=== PATIENT | male | born 1995 | race Caucasian/White ===

== ENCOUNTER 2016-06-27 17:06 | Observation (INO) | payer BC, OTHER ==
[2016-06-27] MEDS ORDERED: NS 0.9% 1000 ML* 2,000 ML IV ONE (17:08)
[2016-06-27] MEDS ORDERED: Naloxone* 0.4 MG/ML 1 ML VIAL IV ONE (17:08)
[2016-06-27 17:28] LABS: Add Diff/Slide Review? Slide Review Added; Comments Flag Yes; Hematocrit 46 % (42-52); Hemoglobin 14.9 g/dl (14.0-18.0); Mean Corpuscular HGB Conc 32 g/dl (31-36); Mean Corpuscular Hemoglobin 27 pg (27-31); Mean Corpuscular Volume 82 fL (80-94); Mean Platelet Volume 9 um3 (7.4-10.4); Red Blood Count 5.64 10^6/ul (4.0-5.4); Red Cell Distribution Width 14 % (10.5-15); White Blood Count 23.5 10^3/ul (3.5-10.8)
--- NOTE | 2016-06-27 17:35 | RAD ---
HISTORY: Shortness of breath, overdose COMPARISONS: None VIEWS:1: Single frontal portable view of the chest at 5:17 PM FINDINGS: LINES AND TUBES: None. CARDIOMEDIASTINAL SILHOUETTE: The cardiomediastinal silhouette is normal for portable technique. PLEURA: The costophrenic angles are sharp. No pleural abnormalities are noted. LUNG PARENCHYMA: The lungs are clear. ABDOMEN: The upper abdomen is clear. There is no subphrenic gas. BONES AND SOFT TISSUES: No bone or soft tissue abnormalities are noted. IMPRESSION: NO ACTIVE CARDIOPULMONARY DISEASE.
[2016-06-27 17:44] LABS: ALT 16 U/L (7-52); Albumin 4.6 g/dL (3.2-5.2); Alkaline Phosphatase 90 U/L (34-104); BUN/Creatinine Ratio 14.9 (8-20); Blood Urea Nitrogen 21 mg/dL (6-24); CO2 Carbon Dioxide 19 mmol/L (22-32); Calcium 9.7 mg/dL (8.6-10.3); Chloride 100 mmol/L (101-111); Creatine Kinase 232 U/L (10-223); EGFR African American 80.8 (>60); EGFR Non-African American 62.9 (>60); Globulin 3.2 g/dL (2-4); Glucose 268 mg/dL (70-100); Sodium 135 mmol/L (133-145); Total Protein 7.8 g/dL (6.4-8.9)
[2016-06-27 17:57] LABS: Acetaminophen < 15 mcg/mL; Alcohol < 10 mg/dL (<10); Salicylate < 2.50 mg/dL (<30)
[2016-06-27 18:08] LABS: TSH (Thyroid Stimulating Horm) 5.59 mcIU/mL (0.34-5.60)
[2016-06-27 18:19] LABS: AST 27 U/L (13-39); Anion Gap 16 mmol/L (2-11); Potassium 4.2 mmol/L (3.5-5.0)
[2016-06-27] MEDS ORDERED: Ondansetron INJ* 2 MG/ML VIAL IV PRN (20:02)
[2016-06-27] MEDS ORDERED: Acetaminophen TAB* 325 MG PO PRN (20:02)
--- NOTE | 2016-06-27 20:31 | ED ---
Jassi Curry Auryana, scribed for Rikki Chang MD on 06/27/16 at 1850 . Substance Abuse/Use - HPI Summary HPI Summary: 20 year old male BIBA s/p heroin overdose. Patient states that he was in the [employer] parking lot and had injected into his left wrist. Patient was given 2 mg Narcan by nurse present at [facility] at the time. When EMS arrived he was cyanotic and they performed CPR which brought the patient back. Per EMS- patient was in sinus tachycardia [employer]. On arrival to the ED, the patient complains of chest pain but denies any other complaints. He denies trouble breathing, SI, and any alcohol use today.He reports that he recently was discharged from rehab about 1 month ago and has been clean for 60 days until today. PMHx is significant for heroin overdose. Social history is significant for heroin (7 years). - History Of Current Complaint Chief Complaint: EDOverdose Stated Complaint: OVERDOSE Time Seen by Provider: 06/27/16 17:08 Hx Obtained From: Patient Onset/Duration of Drug/ETOH Abuse: Minutes Ingestion History: Type/Name Of Drug - heroin, Amount Ingested - unknown Overdose Characteristics: IV - at left wrist Timing Of Abuse: Intermittent, Recent Cessation For A Period Of - for about 60 days Severity Initially: Severe Severity Currently: Mild Alleviating Factor(s): Medication - Narcan Related Hx: Drug/Alcohol Last Used @ - [employer] - Risk Factor(s) Completed Suicide Risk Factors: Male, White Brazilian, Unemployed - Allergies/Home Medications Allergies/Adverse Reactions: Allergies Allergy/AdvReac Type Severity Reaction Status Date / Time Peanut-containing Drug Allergy Severe Anaphylatic Verified 02/21/16 22:29 Products Shock Shellfish Allergy Allergy Severe Anaphylatic Verified 02/21/16 22:29 Shock ENVIRONMENT/SEASONAL HAYFEVER Allergy Mild SNEEZE Uncoded 02/21/16 22:29 Home Medications: Home Medications traZODone TAB* [Desyrel TAB*] 50 mg PO BEDTIME PRN 06/27/16 [History Confirmed 06/27/16] PMH/Surg Hx/FS Hx/Imm Hx Endocrine/Hematology History: Reports: Hx Diabetes - Type I Denies: Hx Thyroid Disease Cardiovascular History: Denies: Hx Hypertension Respiratory History: Reports: Hx Asthma - SPORTS INDUCED Denies: Hx Chronic Obstructive Pulmonary Disease (COPD) GI History: Reports: Other GI Disorders - celiac Denies: Hx Ulcer Sensory History: Denies: Hx Contacts or Glasses, Hx Hearing Aid Opthamlomology History: Denies: Hx Contacts or Glasses Psychiatric History: Reports: Hx Substance Abuse - history of overdose - heroin use - 7 years Denies: Hx Eating Disorder, Hx of Violent Episodes Against Others Infectious Disease History: No Infectious Disease History: Denies: Hx Hepatitis, Hx Human Immunodeficiency Virus (HIV), Traveled Outside the [place] in Last 30 Days - Family History Known Family History: Positive: Diabetes - Social History Occupation: Unemployed Alcohol Use: None Hx Substance Use: Yes Substance Use Type: Reports: Heroin Hx Tobacco Use: No Smoking Status (MU): Never Smoked Tobacco Review of Systems Constitutional: Negative Eyes: Negative ENT: Negative Positive: Chest Pain Respiratory: Negative Gastrointestinal: Negative Genitourinary: Negative Musculoskeletal: Negative Skin: Negative Neurological: Negative Psychological: Normal All Other Systems Reviewed And Are Negative: Yes Physical Exam - Summary Physical Exam Summary: The patient is well-nourished in no acute distress and in no acute pain. The skin is warm and diaphoretic and skin color reflects adequate perfusion. HEENT: The head is normocephalic and atraumatic. The pupils are pin point 10 mm in size. The conjunctivae are clear and without drainage. Nares are patent and with drainage. Mouth reveals moist mucous membranes and the throat is without erythema and exudate. The external ears are intact. The ear canals are patent and without drainage. The tympanic membranes are intact. Neck is supple with full range of motion and non-tender. There are no carotid bruits. There is no neck vein distension. Respiratory: Chest is non-tender. Lungs are clear to auscultation and breath sounds are symmetrical and equal. Cardiovascular: Heart is tachycardic. There is no murmur or rub auscultated. There is no peripheral edema and pulses are symmetrical and equal. Reproducible chest pain on the right chest wall. Abdomen: The abdomen is soft and non-tender. There are normal bowel sounds heard in all four quadrants and there is no organomegaly palpated. Musculoskeletal: There is no back pain noted. Extremities are non-tender with full range of motion. There is good capillary refill. There is no peripheral edema or calf tenderness elicited. Neurological: Patient is alert and oriented to person, place and time. The patient has symmetrical motor strength in all four extremities. Cranial nerves are grossly intact. Deep tendon reflexes are symmetrical and equal in all four extremities. Patient is alert and oriented. Psychiatric: The patient has an appropriate affect and does not exhibit any anxiety or depression. Triage Information Reviewed: Yes Vital Signs On Initial Exam: Initial Vitals Temp Pulse Resp BP Pulse Ox 99.2 F 156 12 156/89 92 06/27/16 17:06 06/27/16 17:06 06/27/16 17:06 06/27/16 17:06 06/27/16 17:06 Vital Signs Reviewed: Yes - Lizzette Coma Scale Coma Scale Total: 15 Diagnostics - Vital Signs Vital Signs Temp Pulse Resp BP Pulse Ox 06/27/16 17:30 117 15 152/91 98 06/27/16 17:29 122 23 144/94 98 06/27/16 17:24 99.2 F 117 16 144/94 98 06/27/16 17:13 125 19 98 06/27/16 17:06 99.2 F 156 12 156/89 92 - Laboratory Lab Results: Lab Results 06/27/16 06/27/16 06/27/16 Range/Units 17:14 17:14 17:14 WBC 23.5 H (3.5-10.8) 10^3/ul RBC 5.64 H (4.0-5.4) 10^6/ul Hgb 14.9 (14.0-18.0) g/dl Hct 46 (42-52) % MCV 82 (80-94) fL MCH 27 (27-31) pg MCHC 32 (31-36) g/dl RDW 14 (10.5-15) % Plt Count 348 (150-450) 10^3/ul MPV 9 (7.4-10.4) um3 Neut % (Auto) 80.4 (38-83) % Lymph % (Auto) 11.8 L (25-47) % [place] % (Auto) 7.0 (1-9) % Eos % (Auto) 0.4 (0-6) % Baso % (Auto) 0.4 (0-2) % Absolute Neuts (auto) 18.9 H (1.5-7.7) 10^3/ul Absolute Lymphs (auto) 2.8 (1.0-4.8) 10^3/ul Absolute Monos (auto) 1.7 H (0-0.8) 10^3/ul Absolute Eos (auto) 0.1 (0-0.6) 10^3/ul Absolute Basos (auto) 0.1 (0-0.2) 10^3/ul Absolute Nucleated RBC 0.01 10^3/ul Nucleated RBC % 0 Sodium 135 (133-145) mmol/L Potassium Pending Chloride 100 L (101-111) mmol/L Carbon Dioxide 19 L (22-32) mmol/L Anion Gap Pending BUN 21 (6-24) mg/dL Creatinine 1.41 H (0.67-1.17) mg/dL Est GFR ( Amer) 80.8 (>60) Est GFR (Non-Af Amer) 62.9 (>60) BUN/Creatinine Ratio 14.9 (8-20) Glucose 268 H (70-100) mg/dL Lactic Acid 4.0 H* (0.5-2.0) mmol/L Calcium 9.7 (8.6-10.3) mg/dL Total Bilirubin 0.40 (0.2-1.0) mg/dL AST Pending ALT 16 (7-52) U/L Alkaline Phosphatase 90 (34-104) U/L Total Creatine Kinase 232 H (10-223) U/L Total Protein 7.8 (6.4-8.9) g/dL Albumin 4.6 (3.2-5.2) g/dL Globulin 3.2 (2-4) g/dL Albumin/Globulin Ratio 1.4 (1-3) TSH Pending Salicylates < 2.50 (<30) mg/dL Acetaminophen < 15 mcg/mL Serum Alcohol < 10 (<10) mg/dL Result Diagrams: 06/27/16 17:14 06/27/16 17:14 Lab Statement: Any lab studies that have been ordered have been reviewed, and results considered in the medical decision making process. - Radiology CXR Xray Interpretation: No Acute Changes - NO ACUTE DISEASE Radiology Interpretation Completed By: Radiologist - EKG 16:57 EKG Interpretation: sinus tachycardia, No STEMI, no ST elevation, and no ST changes, nml axis Re-Evaluation - Re-Evaluation First Eval Re-Evaluation Time: 19:12 - discussed labs Change: Improved Comment: Patient is more alert and oriented. Pupils are reactive and no longer pin point. Heart is regular. Course/Dx - Course Assessment/Plan: 20 year old male BIBA for heroin overdose- states recently clean for 30 days with first relapse today. 2mg narcan and CPR [employer] TE[employer]. Stable on arrival. Patient given normal saline and narcan IV. Labs show elevated creatine kinase (232), lactic acid (4.0), elevated WBC. Consult [facility] Dr. Zepeda hospitalist. Agrees to admit. - Diagnoses Differential Diagnosis/HQI/PQRI: Positive: Drug Abuse, Metabolic Disorder, Other - HEROIN OVERDOSE Provider Diagnoses: Overdose of heroin - Physician Notifications Discussed Care Of Patient With: Dr. Zepeda Time Discussed With Above Provider: 19:30 - agrees to admit Instructed by Provider To: Admit As Observation - Critical Care Time Critical Care Time: 30-74 min - 45 minutes Discharge - Discharge Plan Condition: Critical Disposition: ADMITT[facility] TO [facility] The documentation as recorded by the Jassi trammell Auryana accurately reflects the service I personally performed and the decisions made by me, Rikki Chang MD.
[2016-06-27] MEDS ORDERED: Naloxone* 2 MG in NS 0.9% 250 ML* 245 ML IV SCH (21:00)
[2016-06-27] MEDS: NS 0.9% 1000 ML* 1,000 ML IV SCH (21:31)
[2016-06-27 21:41] LABS: Urine Bacteria Absent (Absent); Urine Bilirubin Negative (Negative); Urine Glucose Negative (Negative); Urine Nitrite Negative (Negative)
[2016-06-27 21:52] LABS: Benzodiazepine Urine Screen None Detected (None Detect)
--- NOTE | 2016-06-28 01:16 | HP ---
HISTORY AND PHYSICAL: DATE OF ADMISSION: 06/27/16 ATTENDING PHYSICIAN WHILE IN THE HOSPITAL: Paulo Zepeda MD *(report dictated by Zion Kelly NP) CHIEF COMPLAINT: Unresponsive. HISTORY OF PRESENT ILLNESS: Mr. Walter is a 20-year-old male patient who has a history of substance abuse, most recently heroin in addition to his diabetes type 1 that he is on an insulin pump for. He comes into the ER today stating that he has been clean for 70 days. He was at [facility] here in [place]. He brought some heroin. He went into the bathroom, he shut up and then he went down, and the next thing knew he was walking out in the parking lot and then he went down. He was found by the dumpster. CPR was initiated. The patient responded to 4 mg of Narcan. He is now awake and alert. He is drowsy and falls asleep mid conservation still, but he says that he was brought in by ambulance. He says his chest hurts now, it hurts to take a deep breath. He denies having any abdominal pain. He denies feeling nauseous. Denies any recent fevers or chills. He says he has not had any recent skin redness or painful areas on his skin and he says he has not been sick recently with upper respiratory symptoms or cough or shortness of breath or any vomiting or diarrhea. He was evaluated here in the ED. It was noted that his white cell count was 23,000 and it was noted he had elevated lactic acid. His CK was mildly elevated as well. Because of these findings, the hospitalist service was asked to evaluate for admission. PAST MEDICAL HISTORY: Significant for: 1. Polysubstance abuse. 2. Diabetes. PAST SURGICAL HISTORY: Denied. HOME MEDICATIONS: Include: 1. Trazodone 50 mg p.o. at bedtime as needed. 2. Vistaril 50 mg at bedtime. 3. Insulin aspart pump. 4. EpiPen 0.3 mg injection once as needed. ALLERGIES TO MEDICATIONS: No known drug allergies. FAMILY HISTORY: Father had a history of hypertension. Mother's history is reviewed and noncontributory. SOCIAL HISTORY: He does not drink. He does not smoke cigarettes, but he does use heroin; his last usage was 70 days ago. His surrogate decision maker is her chune. REVIEW OF SYSTEMS: There is no documented fever. He denies having any significant weight change. There was no double vision. He denies having any ear discharge. There was no rhinorrhea. No sore throat. No thyroid enlargement. There is chest pain now. He denies any nausea, vomiting. No dysuria, no frequency, no loss of consciousness, no pruritus and no skin ulcerations. Review of 14 systems completed, all others negative. PHYSICAL EXAMINATION GENERAL: Mr. Walter is a 20-year-old male patient. He appears to be well nourished and well developed. VITAL SIGNS: Blood pressure 157/87, pulse 108, respirations 20, O2 sat 98%, temperature 99.2. HEENT: Head is atraumatic and normocephalic. Eyes: EOMs are intact. His sclerae were anicteric and not pale. Pupils were pinpoint. Throat: Oral mucosa appears to be moist. No oropharyngeal erythema. LUNGS: Clear to auscultation bilaterally. No wheezes, rales, or rhonchi. HEART: Sounds S1, S2. Regular rate and rhythm. No murmurs, rubs or gallops. ABDOMEN: Soft, flat, nontender. Bowel sounds were present. EXTREMITIES: Pulses were 2+ throughout. He is able to move all 4 extremities with 5/5 strength. NEUROLOGIC: He is awake. He is alert. He is oriented x3. His tongue is midline. He is drowsy though. Travel Journalist are equal. Tongue midline. No gross focal deficits. SKIN: Grossly intact. LABORATORY DATA AND DIAGNOSTIC STUDIES: His labs revealed a WBC of 23.5, RBC of 5.64, hemoglobin 14.9, hematocrit of 46, platelet count of 348. Sodium was 135, potassium 4.2, chloride 100, bicarb of 19. BUN 21, creatinine 1.41, glucose 268, lactic 4.0, calcium 9.7. Total bilirubin 0.4, AST 27, ALT 16, alkaline phosphatase 90, CK 232, albumin 4.6. Toxicology was negative. Urine drug screen was pending. He had a chest x-ray obtained today, showed no active cardiopulmonary disease. He had an EKG obtained today, showed sinus tachycardia. No ST elevations or T- wave inversions noted. It was reviewed with previous EKG, appears to be similar. Old medical records were reviewed. ASSESSMENT AND PLAN: Mr. Walter is a 20-year-old male patient coming into the ER today after a heroin overdose. He has required a significant amount of Narcan. He is drowsy. He will awaken when we talk to him. He is more awake than when he initially presented, but we were asked to evaluate in admission. He will be admitted under observation status for: 1. Heroin overdose. At this point, we will place him in the ICU for close monitoring overnight. We will start him on a Narcan drip of 0.2 mg an hour. We will titrate this to effect and I have ordered a rn social work consult. 2. Leukocytosis, probably secondary to the fact that CPR was initiated at the scene. He probably was hypoxic for a period of time, so we will monitor this. We will send off urine and blood cultures, although I do not think he is actively infected. I think this is more of a leukemoid reaction. 3. Lactic acidosis. Again, probably related to the fact that he was hypoxic when he overdosed. I think at this point we will give him fluids and we will continue to follow him. 4. Diabetes. We will continue his insulin pump and check his fingersticks a.c. 5. Substance abuse. Again, I did order a social work consult. 6. DVT prophylaxis. He will be placed on SCDs. He is lower risk. 7. Fluids, electrolytes and nutrition. He can have a clear liquid diet. 8. Code status is full code. TIME SPENT: Time spent on the admission 60 minutes, greater than half that time spent [id number] with the patient obtaining my history and physical; the other half time spent going over the plan of care with the patient, implementing the plan of care. I did discuss the plan of care with my attending , Dr. Zepeda. He is in agreement. ZION KELLY, LUZ ELENA [id number]/CPS #: [id number] BRYCE
[2016-06-28] MEDS: NS 0.9% 1000 ML* 1,000 ML IV SCH (05:26)
[2016-06-28 06:02] LABS: Hematocrit 38 % (42-52); Hemoglobin 12.7 g/dl (14.0-18.0); Mean Corpuscular HGB Conc 34 g/dl (31-36); Mean Corpuscular Hemoglobin 28 pg (27-31); Mean Corpuscular Volume 82 fL (80-94); Mean Platelet Volume 8 um3 (7.4-10.4); Red Blood Count 4.62 10^6/ul (4.0-5.4); Red Cell Distribution Width 14 % (10.5-15); White Blood Count 11.4 10^3/ul (3.5-10.8)
[2016-06-28 07:12] LABS: BUN/Creatinine Ratio 16.7 (8-20); Calcium 7.9 mg/dL (8.6-10.3); EGFR African American 160.1 (>60); EGFR Non-African American 124.5 (>60); Potassium 3.7 mmol/L (3.5-5.0)
[2016-06-28] MEDS ORDERED: Dextrose 50% Syringe 50 ML* 25 GM/50 ML SYRINGE IV PUSH PRN (07:47)
--- NOTE | 2016-06-28 07:54 | PN ---
Subjective Date of Service: 06/28/16 Interval History: This is a 20 yo male with a PMH of polysubstance abuse who admits to using heroin; he was found unresponsive in the community and received naloxone along with CPR in order to resuscitate the patient. Patient seen and examined at bedside. He reports "feeling good" this morning other than having chest discomfort from CPR. Denies SOB, abd pain, n/v. No acute concerns expressed at this time. Telemetry: Sinus rhythm 90s Family History: Unchanged from Admission Social History: Unchanged from Admission Past Medical History: Unchanged from Admission Objective Active Medications: Acetaminophen (Tylenol Tab*) 650 mg PO Q4H PRN PRN Reason: FEVER/PAIN Dextrose (D50w Syringe 50 Ml*) 12.5 gm IV PUSH .FOR FS < 60 - SS PRN PRN Reason: FS < 60 Sodium Chloride (Ns 0.9% 1000 Ml*) 1,000 mls @ 125 mls/hr IV PER RATE [facility] Last Admin: 06/28/16 05:26 Dose: 125 mls/hr Insulin Human Lispro (Humalog*) 0 units SUBCUT AC [facility] PRN Reason: Protocol Ondansetron HCl (Zofran Inj*) 4 mg IV Q6H PRN PRN Reason: NAUSEA Vital Signs 06/27/16 06/27/16 06/27/16 20:19 20:30 20:54 Temperature 98.3 F Pulse Rate 120 97 100 Respiratory 19 15 18 Rate Blood Pressure 144/78 149/91 (mmHg) O2 Sat by Pulse 97 97 98 Oximetry 06/27/16 06/27/16 06/27/16 20:57 20:59 21:00 Temperature Pulse Rate 100 94 Respiratory 19 15 Rate Blood Pressure 149/87 140/87 (mmHg) O2 Sat by Pulse 98 98 Oximetry 06/27/16 06/27/16 06/27/16 21:15 21:30 21:45 Temperature Pulse Rate 99 92 91 Respiratory 19 19 20 Rate Blood Pressure 149/77 140/82 149/91 (mmHg) O2 Sat by Pulse 98 97 97 Oximetry 06/27/16 06/27/16 06/27/16 22:00 22:15 22:30 Temperature Pulse Rate 106 89 84 Respiratory 23 17 20 Rate Blood Pressure 146/83 144/78 122/82 (mmHg) O2 Sat by Pulse 93 97 97 Oximetry 06/27/16 06/27/16 06/27/16 22:45 23:00 23:15 Temperature Pulse Rate 85 94 94 Respiratory 20 18 25 Rate Blood Pressure 132/83 105/66 154/98 (mmHg) O2 Sat by Pulse 98 99 99 Oximetry 06/27/16 06/27/16 06/27/16 23:30 23:45 23:48 Temperature 99.1 F Pulse Rate 79 93 Respiratory 21 20 Rate Blood Pressure 153/67 132/83 (mmHg) O2 Sat by Pulse 98 98 Oximetry 06/27/16 06/27/16 06/28/16 23:52 23:59 00:00 Temperature Pulse Rate 96 79 Respiratory 22 20 20 Rate Blood Pressure (mmHg) O2 Sat by Pulse 95 98 Oximetry 06/28/16 06/28/16 06/28/16 00:01 00:15 00:24 Temperature Pulse Rate 83 80 Respiratory 19 19 20 Rate Blood Pressure 131/75 134/73 (mmHg) O2 Sat by Pulse 99 99 Oximetry 06/28/16 06/28/16 06/28/16 00:30 00:45 01:00 Temperature Pulse Rate 75 76 90 Respiratory 20 21 22 Rate Blood Pressure 145/75 137/87 135/89 (mmHg) O2 Sat by Pulse 97 98 99 Oximetry 06/28/16 06/28/16 06/28/16 01:15 01:30 01:45 Temperature Pulse Rate 82 83 86 Respiratory 18 17 17 Rate Blood Pressure 141/94 151/98 141/81 (mmHg) O2 Sat by Pulse 98 99 97 Oximetry 06/28/16 06/28/16 06/28/16 02:00 02:15 02:25 Temperature Pulse Rate 83 83 Respiratory 17 21 14 Rate Blood Pressure 143/85 128/69 (mmHg) O2 Sat by Pulse 98 94 Oximetry 06/28/16 06/28/16 06/28/16 03:00 04:00 05:00 Temperature 98.9 F Pulse Rate 100 85 87 Respiratory 23 22 23 Rate Blood Pressure 134/71 136/67 132/68 (mmHg) O2 Sat by Pulse 92 95 92 Oximetry 06/28/16 06/28/16 06/28/16 06:00 06:33 07:00 Temperature Pulse Rate 83 99 Respiratory 18 20 20 Rate Blood Pressure 122/64 122/65 (mmHg) O2 Sat by Pulse 97 96 Oximetry 06/28/16 07:24 Temperature 99.2 F Pulse Rate Respiratory Rate Blood Pressure (mmHg) O2 Sat by Pulse Oximetry Oxygen Devices in Use Now: None Appearance: Young, pleasant, male patient, lying in bed, NAD Eyes: PERRLA Ears/Nose/Mouth/Throat: Mucous Membranes Moist Respiratory: Symmetrical Chest Expansion and Respiratory Effort, Clear to Auscultation Cardiovascular: NL Sounds; No Murmurs; No JVD, RRR - tachycardic Abdominal: NL Sounds; No Tenderness; No Distention Extremities: No Edema, No Clubbing, Cyanosis Skin: No Rash or Ulcers Neurological: Alert and Oriented x 3, NL Muscle Strength and Tone Lines/Tubes/Other Access: Clean, Dry and Intact Peripheral IV Nutrition: Taking PO's Result Diagrams: 06/28/16 05:40 06/28/16 05:40 Additional Lab and Data: Lab Results 06/27/16 06/27/16 06/27/16 Range/Units 17:14 17:14 17:14 WBC 23.5 H (3.5-10.8) 10^3/ul RBC 5.64 H (4.0-5.4) 10^6/ul Hgb 14.9 (14.0-18.0) g/dl Hct 46 (42-52) % MCV 82 (80-94) fL MCH 27 (27-31) pg MCHC 32 (31-36) g/dl RDW 14 (10.5-15) % Plt Count 348 (150-450) 10^3/ul MPV 9 (7.4-10.4) um3 Neut % (Auto) 80.4 (38-83) % Lymph % (Auto) 11.8 L (25-47) % Oliver % (Auto) 7.0 (1-9) % Eos % (Auto) 0.4 (0-6) % Baso % (Auto) 0.4 (0-2) % Absolute Neuts (auto) 18.9 H (1.5-7.7) 10^3/ul Absolute Lymphs (auto) 2.8 (1.0-4.8) 10^3/ul Absolute Monos (auto) 1.7 H (0-0.8) 10^3/ul Absolute Eos (auto) 0.1 (0-0.6) 10^3/ul Absolute Basos (auto) 0.1 (0-0.2) 10^3/ul Absolute Nucleated RBC 0.01 10^3/ul Nucleated RBC % 0 Sodium 135 (133-145) mmol/L Potassium Pending Chloride 100 L (101-111) mmol/L Carbon Dioxide 19 L (22-32) mmol/L Anion Gap Pending BUN 21 (6-24) mg/dL Creatinine 1.41 H (0.67-1.17) mg/dL Est GFR ( Amer) 80.8 (>60) Est GFR (Non-Af Amer) 62.9 (>60) BUN/Creatinine Ratio 14.9 (8-20) Glucose 268 H (70-100) mg/dL Lactic Acid 4.0 H* (0.5-2.0) mmol/L Calcium 9.7 (8.6-10.3) mg/dL Total Bilirubin 0.40 (0.2-1.0) mg/dL AST Pending ALT 16 (7-52) U/L Alkaline Phosphatase 90 (34-104) U/L Total Creatine Kinase 232 H (10-223) U/L Total Protein 7.8 (6.4-8.9) g/dL Albumin 4.6 (3.2-5.2) g/dL Globulin 3.2 (2-4) g/dL Albumin/Globulin Ratio 1.4 (1-3) TSH Pending Salicylates < 2.50 (<30) mg/dL Acetaminophen < 15 mcg/mL Serum Alcohol < 10 (<10) mg/dL Microbiology and Other Data: Microbiology 06/27/16 21:10 Nasal Screen MRSA (PCR)(ALFONZO) - Final Nasal Mrsa Negative Assess/Plan/Problems-Billing Assessment: Mr. Walter is a 20 yo male with a PMH of polysubstance abuse and type 1 DM who presented to the ED on 06/27/16 with concern for heroin overdose. - Patient Problems (1) Heroin overdose Code(s): T40.1X1A - POISONING BY HEROIN, ACCIDENTAL (UNINTENTIONAL), INIT ENCNTR Comment: Patient with known history of polysubstance abuse. Has completed rehab in the past. Discontinue naloxone gtt, continue to carefully monitor. Social work consult. (2) Elevated CK Code(s): R74.8 - ABNORMAL LEVELS OF OTHER SERUM ENZYMES Comment: Small elevation in CK level Suspect secondary to OD and unknown downtime Renal function improving Outpatient CK draw and f/u with PCP Patient instructed to drink plenty of fluids (3) Leukocytosis Code(s): D72.829 - ELEVATED WHITE BLOOD CELL COUNT, UNSPECIFIED Comment: Improving, afebrile. Likely a leukemoid reaction, secondary to OD and CPR UA unremarkable, blood and urine cx pending (4) Lactic acidosis Code(s): E87.2 - ACIDOSIS Comment: Now resolved Suspect secondary to hypoxia from overdose (5) Type 1 diabetes Comment: Continue FSBG. Patient may use own insulin pump. (6) DVT prophylaxis Code(s): ZLU5181 - Comment: SCDs Status and Disposition: OBV admit. D/c to home when medically stable.
[2016-06-28] MEDS ORDERED: Insulin LISPRO* 1 UNITS UNIT SUBCUT SCH (08:00)
[2016-06-28 14:52] VITALS: BP 147/87
--- NOTE | 2016-06-29 04:01 | DS ---
MEDICINE DISCHARGE SUMMARY: DATE OF ADMISSION: 06/27/16 DATE OF DISCHARGE: 06/28/16 PROVIDER: Aimee Munoz NP ATTENDING PHYSICIAN: Kaylee Collins MD * (as dictated by Aimee Munoz NP) PRIMARY DISCHARGE DIAGNOSES: 1. Heroin overdose. 2. Lactic acidosis. 3. Creatine kinase elevation. SECONDARY DISCHARGE DIAGNOSES: 1. History of polysubstance abuse. 2. Type 1 diabetes. MEDICATIONS AT DISCHARGE: 1. Insulin pump 23 units subcu q.24 hours. 2. Vistaril 50 mg at bedtime. 3. EpiPen 0.3 mg inject once p.r.n. 4. Trazodone 50 mg at bedtime p.r.n. HOSPITAL COURSE OF STAY: For full details, please refer to the H and P provided by nurse practitioner, Zion Samaniego. In summary, Mr. Walter is a 20- year-old male patient who recently was discharged from rehab. He reported that he had been clean for 70 days prior to this admission. The patient admits to heroin use just prior to coming to the ER. He remembers walking outside and then has no recollection. The patient was found by the dumpster. It is unclear if he was pulseless. However, it was noted that CPR was initiated. The patient did receive naloxone with good response. He arrived to the ER awake and alert but with intermittent drowsiness. The patient was admitted under observation and placed in the ICU for naloxone drip. The patient continued to improve overnight and the following morning was alert without need of Narcan. We did discontinue this and the patient was able to maintain an alert state. A social work consult was placed. Per the social work, the patient was offered both inpatient and outpatient treatment assistance. The patient states that he has had both in the past and would like to continue with his current plan and AA participation in managing his polysubstance abuse history. Upon admission, the patient could also have concern for leukocytosis and lactic acidosis. It is most likely secondary to his hypoxia from when he overdosed as well as CPR. His white blood cell count did improve the following morning. The patient's total CK was also mildly elevated upon admission. It was rechecked the following morning and had increased to 624, which was still mildly elevated. However, the patient's renal function has improved and is within normal limits. The patient's lactic acid was 4.0 upon admission. It is now 1.3. The patient was able to tolerate p.o. intake and is ambulatory. His blood sugars are well controlled. I did offer watching the patient overnight for one more day in order to continue to monitor his renal function and CK levels. The patient requested to go home with his fiancee. He states that he has an AA sponsor and will follow up with him. His fiancee will also be watching him and she is a healthcare professional. In regards to the patient's total CK, I did advise him that he needs to stay well hydrated and to follow up in 2 days for a lab draw to be sent to his PCP. He states that he has seen Dr. Crabtree of [facility] in the past and will be willing to see her again. A call to [facility] made for followup appointment for lab draw as well as a physician appointment next week. The patient was made aware of this and states he will follow up with the doctor. At the time of discharge, the patient is alert and oriented and vital signs are stable. He has no acute complaints other than mild tenderness from chest compression. No other acute concerns. The patient's telemetry showed sinus rhythm. The patient appears stable for discharge. CONCERNS AT DISCHARGE: Mr. Walter will be discharged to home on 06/28/16 with appropriate followup and lab draws as previously mentioned. DIET: Diabetic diet. The patient is encouraged to drink lots of fluid. ACTIVITY: As tolerated. CONDITION: Improved, stable. DISPOSITION: To home. TIME SPENT: Time spent on this discharge was approximately 50 minutes. Again, this is only a brief summary of the patient's hospital course of stay. For full details, please refer to the full medical record. If you have any further questions or need further assistance, please feel free to contact me at . AIMEE MUNOZ NP CC: Alda Crabtree MD * [id number]/[facility] #: [id number] BRYCE
== END 2016-06-28 14:10 | disposition home or self-care (01) ==
LOC: ED 17:06 → ICU 20:10 → INTOOBSV 20:10
PROVIDERS: ADMIT Hospitalist; ATTEND Internal Medicine
DX: T40.1X1A Poisoning by heroin, accidental (unintentional), initial encounter (principal); F11.20 Opioid dependence, uncomplicated; Y92.9 Unspecified place or not applicable; E87.2 Acidosis; R74.8 Abnormal levels of other serum enzymes; D72.829 Elevated white blood cell count, unspecified; E10.9 Type 1 diabetes mellitus without complications; R00.0 Tachycardia, unspecified; Z79.4 Long term (current) use of insulin; Z96.41 Presence of insulin pump (external) (internal); Z79.899 Other long term (current) drug therapy
CPT/HCPCS: 36415; 71010; 80048; 80053; 80307; 80320; 80329; 81003; 81015; 82550; 83605; 84443; 85025; 85610; 87040; 87641; 93005; 94760; 96361; 96374; 96376; 99291; G0378; G0480; J2310

== ENCOUNTER 2017-05-04 13:43 | Emergency (ER) | payer BC ==
[2017-05-04] MEDS ORDERED: NS 0.9% 1000 ML* 1,000 ML IV ONE ×2 (13:51→15:36)
[2017-05-04] MEDS: NS 0.9% 1000 ML* 1,000 ML IV ONE ×2 (14:21→14:35)
[2017-05-04 14:25] LABS: Hematocrit 44 % (42-52); Hemoglobin 14.7 g/dl (14.0-18.0); Mean Corpuscular HGB Conc 34 g/dl (31-36); Mean Corpuscular Hemoglobin 29 pg (27-31); Mean Corpuscular Volume 86 fL (80-94); Mean Platelet Volume 9 um3 (7.4-10.4); Platelet Count 326 10^3/ul (150-450); Red Blood Count 5.11 10^6/ul (4.0-5.4); Red Cell Distribution Width 13 % (10.5-15); White Blood Count 32.4 10^3/ul (3.5-10.8)
[2017-05-04 14:44] LABS: EGFR Non-African American 70.3 (>60)
[2017-05-04 15:00] LABS: ABS Basophils 0 10^3/ul (0-0.2); ABS Eosinophils 0 10^3/ul (0-0.6); ABS Lymphocytes 0.8 10^3/ul (1.0-4.8); ABS Monocytes 1.7 10^3/ul (0-0.8); ABS Neutrophils 29.9 10^3/ul (1.5-7.7); ABS Nucleated RBC 0 10^3/ul; Eosinophil % 0 % (0-6); Lymphocyte % 2.4 % (25-47); Nucleated Red Blood Cells % 0
--- NOTE | 2017-05-04 15:42 | RAD ---
HISTORY: High white count COMPARISONS: June 27, 2016 VIEWS: 4: Frontal dual-energy and lateral views of the chest. FINDINGS: CARDIOMEDIASTINAL SILHOUETTE: The cardiomediastinal silhouette is normal. MAN: The man are normal. PLEURA: The costophrenic angles are sharp. No pleural abnormalities are noted. LUNG PARENCHYMA: The lungs are clear. ABDOMEN: The upper abdomen is clear. There is no subphrenic gas. BONES AND SOFT TISSUES: No bone or soft tissue abnormalities are noted. OTHER: None. IMPRESSION: NO ACTIVE CARDIOPULMONARY DISEASE.
[2017-05-04 16:28] LABS: Hematocrit 42 % (42-52); Hemoglobin 14.3 g/dl (14.0-18.0); Mean Corpuscular HGB Conc 34 g/dl (31-36); Mean Corpuscular Hemoglobin 29 pg (27-31); Mean Corpuscular Volume 85 fL (80-94); Mean Platelet Volume 8 um3 (7.4-10.4); Platelet Count 310 10^3/ul (150-450); Red Blood Count 4.95 10^6/ul (4.0-5.4); Red Cell Distribution Width 13 % (10.5-15); White Blood Count 22.8 10^3/ul (3.5-10.8)
[2017-05-04 16:29] LABS: Urine Appearance Cloudy; Urine Blood Negative (Negative); Urine Color Yellow; Urine Ketones Negative (Negative); Urine Protein 1+(30 mg/dL) (Negative); Urine Specific Gravity 1.014 (1.010-1.030); Urine Urobilinogen Negative (Negative)
[2017-05-04 16:49] LABS: ABS Basophils 0 10^3/ul (0-0.2); ABS Eosinophils 0 10^3/ul (0-0.6); ABS Lymphocytes 1.2 10^3/ul (1.0-4.8); ABS Monocytes 1.3 10^3/ul (0-0.8); ABS Neutrophils 20.2 10^3/ul (1.5-7.7); ABS Nucleated RBC 0 10^3/ul; Eosinophil % 0 % (0-6); Lymphocyte % 5.3 % (25-47); Nucleated Red Blood Cells % 0
[2017-05-04] MEDS ORDERED: Naloxone Nasal Spray* 4 MG/0.1 ML NASAL.SPR NASAL PRN (17:03)
[2017-05-04 17:21] VITALS: BP 141/74
--- NOTE | 2017-05-04 17:23 | ED ---
Substance Abuse/Use - HPI Summary HPI Summary: Patient is a 21-year-old type I diabetic with a history of polysubstance abuse presenting to the ED BIBA with a heroin overdose. Found by brother approximately 20 minutes prior to arrival. Patient is alert on arrival after Narcan given in ambulance. Glucose noted to be at 550. He remains on a insulin pump and states his sugars have been normal up until today. Last heroin use 11 months ago. He was recently in treatment for heroin abuse. He states he feels fine on arrival and denies any fevers, abdominal pain, nausea, vomiting, headaches, or chest pain pressure or palpitations. He states he took half a gram of heroin and denies any other drug or alcohol use on this date. - History Of Current Complaint Chief Complaint: EDOverdose Stated Complaint: OVERDOSE/DIABETES COMPLICATIONS Time Seen by Provider: 05/04/17 13:51 Hx Obtained From: Patient, EMS Onset/Duration of Drug/ETOH Abuse: Minutes Ingestion History: Type/Name Of Drug - Heroin, Amount Ingested - 0.5 g Overdose Characteristics: IV Timing Of Abuse: Binge Use, Recent Cessation For A Period Of - 11 months Severity Initially: Moderate Severity Currently: Mild Character: Stuporous Aggravating Factor(s): Nothing Alleviating Factor(s): Nothing Associated Signs And Symptoms: Negative - Wouldn't do it Related Hx: Drug/Alcohol Last Used @ - Today, Possible Multi Drug Ingestion - Risk Factor(s) Completed Suicide Risk Factors: Negative - is look forward to - Allergies/Home Medications Allergies/Adverse Reactions: Allergies Allergy/AdvReac Type Severity Reaction Status Date / Time MS Peanut-containing Drug Allergy Severe Anaphylatic Verified 02/21/16 22:29 Products Shock [Peanut-containing Drug Products] MS Shellfish Allergy Allergy Severe Anaphylatic Verified 02/21/16 22:29 [Shellfish Allergy] Shock ENVIRONMENT/SEASONAL HAYFEVER Allergy Mild SNEEZE Uncoded 02/21/16 22:29 PMH/Surg Hx/FS Hx/Imm Hx Previously Healthy: Yes Endocrine/Hematology History: Reports: Hx Diabetes - Type I Denies: Hx Thyroid Disease Cardiovascular History: Denies: Hx Hypertension Respiratory History: Reports: Hx Asthma - SPORTS INDUCED Denies: Hx Chronic Obstructive Pulmonary Disease (COPD) GI History: Reports: Other GI Disorders - celiac Denies: Hx Ulcer Sensory History: Denies: Hx Contacts or Glasses, Hx Hearing Aid Opthamlomology History: Denies: Hx Contacts or Glasses Psychiatric History: Reports: Hx Substance Abuse - history of overdose - heroin use - 7 years Denies: Hx Eating Disorder, Hx of Violent Episodes Against Others - Immunization History Hx Pertussis Vaccination: No Immunizations Up to Date: Unable to Obtain/Confirm - 2-3 Infectious Disease History: No Infectious Disease History: Denies: Hx Hepatitis, Hx Human Immunodeficiency Virus (HIV), Traveled Outside the [place] in Last 30 Days - Family History Known Family History: Positive: Diabetes - Social History Occupation: Unemployed Lives: Alone Alcohol Use: None Hx Substance Use: Yes Substance Use Type: Reports: Cocaine, Heroin Hx Tobacco Use: No Smoking Status (MU): Never Smoked Tobacco Review of Systems Constitutional: Negative Negative: Fever, Chills, Fatigue, Skin Diaphoresis Eyes: Negative Cardiovascular: Negative Genitourinary: Negative Positive: no symptoms reported, see HPI Musculoskeletal: Negative Skin: Negative - all all within normal Neurological: Negative All Other Systems Reviewed And Are Negative: Yes Physical Exam Triage Information Reviewed: Yes Vital Signs On Initial Exam: Initial Vitals Temp Pulse Resp BP Pulse Ox 98.4 F 114 15 125/85 92 05/04/17 14:06 05/04/17 14:06 05/04/17 14:06 05/04/17 14:06 05/04/17 14:06 Vital Signs Reviewed: Yes Appearance: Positive: Well-Appearing, Ill-Appearing, Cachectic Skin: Positive: Skin Color Reflects Adequate Perfusion Head/Face: Positive: Normal Head/Face Inspection Eyes: Positive: Other: - Pupils fixed and constricted Neck: Positive: Supple, Nontender, No Lymphadenopathy Respiratory/Lung Sounds: Positive: Clear to Auscultation, Breath Sounds Present Cardiovascular: Positive: RRR, Pulses are Symmetrical in both Upper and Lower Extremities Musculoskeletal: Positive: Normal, Strength/ROM Intact Neurological: Positive: Speech Normal Psychiatric: Positive: Normal, Affect/Mood Appropriate AVPU Assessment: Alert Diagnostics - Vital Signs Vital Signs Temp Pulse Resp BP Pulse Ox 05/04/17 15:00 144 22 95 05/04/17 14:34 118 19 95 05/04/17 14:06 98.4 F 114 15 125/85 92 - Laboratory Lab Results: Lab Results 05/04/17 05/04/17 05/04/17 Range/Units 14:00 14:00 14:23 WBC 32.4 H (3.5-10.8) 10^3/ul RBC 5.11 (4.0-5.4) 10^6/ul Hgb 14.7 (14.0-18.0) g/dl Hct 44 (42-52) % MCV 86 (80-94) fL MCH 29 (27-31) pg MCHC 34 (31-36) g/dl RDW 13 (10.5-15) % Plt Count 326 (150-450) 10^3/ul MPV 9 (7.4-10.4) um3 Neut % (Auto) 92.3 H (38-83) % Lymph % (Auto) 2.4 L (25-47) % Smith % (Auto) 5.3 (0-7) % Eos % (Auto) 0 (0-6) % Baso % (Auto) 0 (0-2) % Absolute Neuts (auto) 29.9 H (1.5-7.7) 10^3/ul Absolute Lymphs (auto) 0.8 L (1.0-4.8) 10^3/ul Absolute Monos (auto) 1.7 H (0-0.8) 10^3/ul Absolute Eos (auto) 0 (0-0.6) 10^3/ul Absolute Basos (auto) 0 (0-0.2) 10^3/ul Absolute Nucleated RBC 0 10^3/ul Nucleated RBC % 0 Sodium 133 (133-145) mmol/L Potassium 4.3 (3.5-5.0) mmol/L Chloride 101 (101-111) mmol/L Carbon Dioxide 23 (22-32) mmol/L Anion Gap 9 (2-11) mmol/L BUN 12 (6-24) mg/dL Creatinine 1.27 H (0.67-1.17) mg/dL Est GFR ( Amer) 90.4 (>60) Est GFR (Non-Af Amer) 70.3 (>60) BUN/Creatinine Ratio 9.4 (8-20) Glucose 327 H (70-100) mg/dL Lactic Acid 1.7 (0.5-2.0) mmol/L Calcium 9.1 (8.6-10.3) mg/dL Total Bilirubin 0.40 (0.2-1.0) mg/dL AST 18 (13-39) U/L ALT 14 (7-52) U/L Alkaline Phosphatase 74 (34-104) U/L Total Creatine Kinase 63 (10-223) U/L Total Protein 7.4 (6.4-8.9) g/dL Albumin 4.4 (3.2-5.2) g/dL Globulin 3.0 (2-4) g/dL Albumin/Globulin Ratio 1.5 (1-3) Urine Color Urine Appearance Urine pH (5-9) Ur Specific [place] (1.010-1.030) Urine Protein (Negative) Urine Ketones (Negative) Urine Blood (Negative) Urine Nitrate (Negative) Urine Bilirubin (Negative) Urine Urobilinogen (Negative) Ur Leukocyte Esterase (Negative) Urine WBC (Auto) (Absent) Urine RBC (Auto) (Absent) Urine Bacteria (Absent) Urine Glucose (Negative) Salicylates < 2.50 (<30) mg/dL Urine Opiates Screen (None Detect) Acetaminophen < 15 mcg/mL Ur Barbiturates Screen (None Detect) Ur Phencyclidine Scrn (None Detect) Ur Amphetamines Screen (None Detect) U Benzodiazepines Scrn (None Detect) Urine Cocaine Screen (None Detect) U Cannabinoids Screen (None Detect) Serum Alcohol < 10 (<10) mg/dL 05/04/17 05/04/17 05/04/17 Range/Units 16:15 16:15 16:18 WBC 22.8 H (3.5-10.8) 10^3/ul RBC 4.95 (4.0-5.4) 10^6/ul Hgb 14.3 (14.0-18.0) g/dl Hct 42 (42-52) % MCV 85 (80-94) fL MCH 29 (27-31) pg MCHC 34 (31-36) g/dl RDW 13 (10.5-15) % Plt Count 310 (150-450) 10^3/ul MPV 8 (7.4-10.4) um3 Neut % (Auto) 88.7 H (38-83) % Lymph % (Auto) 5.3 L (25-47) % Smith % (Auto) 5.8 (0-7) % Eos % (Auto) 0 (0-6) % Baso % (Auto) 0.2 (0-2) % Absolute Neuts (auto) 20.2 H (1.5-7.7) 10^3/ul Absolute Lymphs (auto) 1.2 (1.0-4.8) 10^3/ul Absolute Monos (auto) 1.3 H (0-0.8) 10^3/ul Absolute Eos (auto) 0 (0-0.6) 10^3/ul Absolute Basos (auto) 0 (0-0.2) 10^3/ul Absolute Nucleated RBC 0 10^3/ul Nucleated RBC % 0 Sodium (133-145) mmol/L Potassium (3.5-5.0) mmol/L Chloride (101-111) mmol/L Carbon Dioxide (22-32) mmol/L Anion Gap (2-11) mmol/L BUN (6-24) mg/dL Creatinine (0.67-1.17) mg/dL Est GFR ( Amer) (>60) Est GFR (Non-Af Amer) (>60) BUN/Creatinine Ratio (8-20) Glucose (70-100) mg/dL Lactic Acid (0.5-2.0) mmol/L Calcium (8.6-10.3) mg/dL Total Bilirubin (0.2-1.0) mg/dL AST (13-39) U/L ALT (7-52) U/L Alkaline Phosphatase (34-104) U/L Total Creatine Kinase (10-223) U/L Total Protein (6.4-8.9) g/dL Albumin (3.2-5.2) g/dL Globulin (2-4) g/dL Albumin/Globulin Ratio (1-3) Urine Color Yellow Urine Appearance Cloudy Urine pH 7.0 (5-9) Ur Specific [place] 1.014 (1.010-1.030) Urine Protein 1+(30 mg/dl) A (Negative) Urine Ketones Negative (Negative) Urine Blood Negative (Negative) Urine Nitrate Negative (Negative) Urine Bilirubin Negative (Negative) Urine Urobilinogen Negative (Negative) Ur Leukocyte Esterase Negative (Negative) Urine WBC (Auto) Trace(0-5/hpf) (Absent) Urine RBC (Auto) Absent (Absent) Urine Bacteria Absent (Absent) Urine Glucose 3+(>=500 mg/dl) A (Negative) Salicylates (<30) mg/dL Urine Opiates Screen Presumptive positive A (None Detect) Acetaminophen mcg/mL Ur Barbiturates Screen None detected (None Detect) Ur Phencyclidine Scrn None detected (None Detect) Ur Amphetamines Screen None detected (None Detect) U Benzodiazepines Scrn None detected (None Detect) Urine Cocaine Screen None detected (None Detect) U Cannabinoids Screen None detected (None Detect) Serum Alcohol (<10) mg/dL 05/04/17 Range/Units 16:18 WBC (3.5-10.8) 10^3/ul RBC (4.0-5.4) 10^6/ul Hgb (14.0-18.0) g/dl Hct (42-52) % MCV (80-94) fL MCH (27-31) pg MCHC (31-36) g/dl RDW (10.5-15) % Plt Count (150-450) 10^3/ul MPV (7.4-10.4) um3 Neut % (Auto) (38-83) % Lymph % (Auto) (25-47) % Smith % (Auto) (0-7) % Eos % (Auto) (0-6) % Baso % (Auto) (0-2) % Absolute Neuts (auto) (1.5-7.7) 10^3/ul Absolute Lymphs (auto) (1.0-4.8) 10^3/ul Absolute Monos (auto) (0-0.8) 10^3/ul Absolute Eos (auto) (0-0.6) 10^3/ul Absolute Basos (auto) (0-0.2) 10^3/ul Absolute Nucleated RBC 10^3/ul Nucleated RBC % Sodium (133-145) mmol/L Potassium (3.5-5.0) mmol/L Chloride (101-111) mmol/L Carbon Dioxide (22-32) mmol/L Anion Gap (2-11) mmol/L BUN (6-24) mg/dL Creatinine (0.67-1.17) mg/dL Est GFR ( Amer) (>60) Est GFR (Non-Af Amer) (>60) BUN/Creatinine Ratio (8-20) Glucose 140 H (70-100) mg/dL Lactic Acid (0.5-2.0) mmol/L Calcium (8.6-10.3) mg/dL Total Bilirubin (0.2-1.0) mg/dL AST (13-39) U/L ALT (7-52) U/L Alkaline Phosphatase (34-104) U/L Total Creatine Kinase (10-223) U/L Total Protein (6.4-8.9) g/dL Albumin (3.2-5.2) g/dL Globulin (2-4) g/dL Albumin/Globulin Ratio (1-3) Urine Color Urine Appearance Urine pH (5-9) Ur Specific [place] (1.010-1.030) Urine Protein (Negative) Urine Ketones (Negative) Urine Blood (Negative) Urine Nitrate (Negative) Urine Bilirubin (Negative) Urine Urobilinogen (Negative) Ur Leukocyte Esterase (Negative) Urine WBC (Auto) (Absent) Urine RBC (Auto) (Absent) Urine Bacteria (Absent) Urine Glucose (Negative) Salicylates (<30) mg/dL Urine Opiates Screen (None Detect) Acetaminophen mcg/mL Ur Barbiturates Screen (None Detect) Ur Phencyclidine Scrn (None Detect) Ur Amphetamines Screen (None Detect) U Benzodiazepines Scrn (None Detect) Urine Cocaine Screen (None Detect) U Cannabinoids Screen (None Detect) Serum Alcohol (<10) mg/dL Result Diagrams: 05/04/17 16:18 05/04/17 14:00 Lab Statement: Any lab studies that have been ordered have been reviewed, and results considered in the medical decision making process. Course/Dx - Course Course Of Treatment: On arrival, patient is evaluated for heroin overdose. Pupils are fixed and constricted. He states he feels well on arrival and denies any pain or physical symptoms. EKG is obtained which shows sinus tachycardia with a rate of 107 otherwise normal sinus rhythm. He is kept on the Cardiopulmonary Monitor. White blood cell count noted to be at 32.4 after 2 L bolus normal saline, reduced to 22.8. Blood glucose of 550 on arrival reducing to 325 and prior to discharge noted to be at 140. Urine shows 3+ glucose, however urine pH is 7.0 and within normal limits. Positive for opiates but negative for other drugs or alcohol. He remains feeling well and is okay for discharge at this time. I have consulted with Dr. Javed who also agrees to see patient and suggests 4 mg intranasal at home Narcan due to previous heroin overdoses. Increased white blood cell count likely due to the epinephrine response, chest x-ray obtained which shows no acute cardiopulmonary findings. Vital signs stable on discharge. - Diagnoses Differential Diagnosis/HQI/PQRI: Positive: Anxiety, Drug Abuse, Metabolic Disorder Provider Diagnoses: Heroin overdose Discharge - Discharge Plan Condition: Stable Disposition: HOME Patient Education Materials: Narcotic Abuse (ED) Referrals: Edwina Andrade MD [Primary Care Provider] - Additional Instructions: Heroin Overdose: Narcan Nasal [place] Use: Call [address] the patient in the supine (face up) position and provide support to the back of the neck to allow the head to tilt back. [place] in one nostril. Following administration, turn the patient on their side. Each container contains a single intranasal spray, do not reuse; if repeat administration is necessary a new container must be used. Please follow up with your PCP regarding your increased blood sugar levels today. At this time, your glucose is 140. If you develop any worsening or changing symptoms, return to the ED immediately
== END 2017-05-04 17:19 | disposition home or self-care (01) ==
LOC: ED 13:43
DX: T40.1X1A Poisoning by heroin, accidental (unintentional), initial encounter (principal); E10.9 Type 1 diabetes mellitus without complications; Z79.4 Long term (current) use of insulin; Z96.41 Presence of insulin pump (external) (internal)
CPT/HCPCS: 36415; 71046; 80053; 80307; 80320; 80329; 81003; 81015; 82550; 82947; 83605; 85025; 87086; 93005; 96360; 96361; 99282; A9270-GY; G0480